=== PATIENT | male | born 1975 | race Caucasian/White ===

== ENCOUNTER 2020-11-27 13:13 | Outpatient (CLI) | payer OTHER | END 2020-11-27 18:00 | disposition home or self-care (01) | LOC: LAB 13:13 | DX: Z03.818 Encounter for observation for suspected exposure to other biological agents ruled out (principal) ==

== ENCOUNTER → 2021-01-25 | Outpatient (CLI) | payer OTHER | END | disposition home or self-care (01) | LOC: PPH VACUNA 09:00 | PROVIDERS: ATTEND Emergency Medicine Pediatric Emergency Medicine | DX: Z23 Encounter for immunization (principal) ==